=== PATIENT | female | born 1995 | race Caucasian/White ===

== ENCOUNTER 2023-09-02 07:00 | Day surgery (SDC) | payer BC ==
--- NOTE | 2023-08-27 08:11 | HP ---
DATE OF SURGERY: 09/02/2023 HISTORY OF PRESENT ILLNESS: The patient is a 28-year-old female presents with some more pain on the right side here lately. She has constant pain that comes in waves. There is a lot of heartburn at night. She is on some Pepto but it is not helping. Last April she was found to have a mucous filled appendix on CT scan. It appears that she was scheduled for colonoscopic examination but had to reschedule. She had been seen by Dr. Kike Fajardo initially and I believe that we do plan to do a laparoscopic appendectomy on her at some point. PAST MEDICAL HISTORY: Depression. Insomnia. Heartburn. PAST SURGICAL HISTORY: Tonsillectomy. Foot surgery. ALLERGIES: TRIPLE ANTIBIOTIC BACITRACIN, NEOMYCIN, POLYMYXIN (RASH). MEDICATIONS: Fluticasone, gabapentin, Apri, meloxicam, Mounjaro, amitriptyline, naltrexone, FAMILY HISTORY: Diabetes, atrial fibrillation. SOCIAL HISTORY: Negative. REVIEW OF SYSTEMS: CONSTITUTIONAL: Denies fever or chills. CHEST: Denies shortness of breath. CVS: Denies chest pain. ABDOMEN: Reports epigastric pain and right-sided abdominal pain. PHYSICAL EXAMINATION: GENERAL: No acute distress. CHEST: Nonlabored. No shortness of breath. CVS: Regular rate and rhythm. ABDOMEN: Soft. IMPRESSION: Epigastric pain, heartburn, mucocele of the appendix. PLAN: EGD and colonoscopy with Dr. Kike Fajardo. As dictated by Radha Foley NP.
[2023-09-02] MEDS ORDERED: Lactated Ringers 1,000 ML IV ONE (07:08)
[2023-09-02 07:22] LABS: HCG URINE TEST NEGATIVE (NEGATIVE)
[2023-09-02 07:40] VITALS: RESP 16
[2023-09-02] MEDS: Lactated Ringers 1,000 ML IV SCH (07:45)
[2023-09-02] MEDS ORDERED: DIPRIVAN 200 MG/20 ML IV ONE ×3 (09:14→09:45)
[2023-09-02] MEDS ORDERED: Versed 2 MG/2 ML Injection ONE (09:15)
[2023-09-02] MEDS ORDERED: Xylocaine-Mpf 2% 5 Ml Vial ONE (09:20)
[2023-09-02 10:15] VITALS: TEMP 98.5
[2023-09-02 10:22] VITALS: BP 123/88; PULSE 86; O2SAT 100
--- NOTE | 2023-09-02 10:22 | OP ---
SURGERY DATE/TIME: 09/02/2023 0939 PREOPERATIVE DIAGNOSIS: The patient had previous admissions for abdominal pain. POSTOPERATIVE DIAGNOSIS: The patient had previous admissions for abdominal pain. PROCEDURES: 1) EGD. 2) Colonoscopy. SURGEON: Kike Fajadro M.D. ANESTHESIA: MAC. INDICATION: She has had right-sided abdominal pain. She had epigastric pain. She had a CT scan showing a mucocele of the appendix. She presents for colonoscopic examination to look at the base for appendix and EGD to evaluate for upper symptoms. DESCRIPTION OF PROCEDURE: She is taken to endoscopy. Left lateral decubitus position. MAC sedation provided. Scope introduced. Pharyngoesophageal junction normal. Esophagus normal down to gastroesophageal junction. Gastroesophageal junction satisfactory. No hiatal hernia. Fundus, body normal. There were four superficial ulcerations in the prepyloric area. Resizer Operator cold biopsy for JAMAL-test. Pylorus normal. Duodenal bulb normal. Second portion normal. Scope withdrawn and looped upon itself. No additional lesions. Scope withdrawn. Anal digital examination satisfactory. Scope advanced. Slightly redundant. Slightly spastic. Scope advanced to the cecum. The appendiceal orifice was totally open and no suggestion of issue. Base of the cecum satisfactory. Ascending, hepatic, transverse, splenic, descending, sigmoid, rectum, anus normal. Normal colonoscopy. I think we can proceed with a laparoscopic appendectomy for chronic mucocele. I do not think it is from tumorous origin.
== END 2023-09-02 10:30 | disposition home or self-care (01) ==
LOC: SDC 07:00
PROVIDERS: ATTEND Surgery
DX: R10.31 Right lower quadrant pain (principal); Z83.3 Family history of diabetes mellitus
CPT/HCPCS: 81025; 82947; J2250; J2704

== ENCOUNTER 2023-10-21 06:56 | Day surgery (SDC) | payer BC ==
--- NOTE | 2023-10-19 14:37 | HP ---
DATE OF SURGERY: 10/21/2023 HISTORY OF PRESENT ILLNESS: The patient is a 28-year-old female who had presented with a chronic mucocele of the appendix. We recently did an EGD and colonoscopy on this patient. She had some superficial ulceration. Her colonoscopy was fine. She presents for laparoscopic appendectomy at this time. She had also been subsequently started on Carafate and proton pump inhibitor for ulcers. PAST MEDICAL HISTORY: Diabetes. Anxiety. Depression. Gastroesophageal reflux disease. Thyroid. Fibromyalgia. PAST SURGICAL HISTORY: Tonsillectomy. Foot surgery. ALLERGIES: TRIPLE ANTIBIOTIC. MEDICATIONS: Fluoxetine, gabapentin, Apri, meloxicam, Mounjaro, amitriptyline. Naltrexone. FAMILY HISTORY: Diabetes, atrial fibrillation. SOCIAL HISTORY: Negative. REVIEW OF SYSTEMS: CONSTITUTIONAL: Denies fever or chills. CHEST: Denies shortness of breath. CVS: Denies chest pain. ABDOMEN: Denies abdominal pain. PHYSICAL EXAMINATION: GENERAL: No acute distress. CHEST: Nonlabored. No shortness of breath. CVS: Regular rate and rhythm. ABDOMEN: Soft. IMPRESSION: Chronic mucocele of the appendix. PLAN: Laparoscopic appendectomy with Dr. Kike Fajardo. As dictated by Radha Foley NP.
[2023-10-21] MEDS ORDERED: Versed 2 MG/2 ML Injection IV PRN (07:19)
[2023-10-21] MEDS ORDERED: Lactated Ringers 1,000 ML IV ONE ×2 (07:20→08:22)
[2023-10-21] MEDS ORDERED: NEURONTIN ONE (07:25)
[2023-10-21] MEDS ORDERED: Transderm Scop 1.5MG Patch ONE (07:25)
[2023-10-21] MEDS ORDERED: Decadron 4 MG ONE (07:25)
[2023-10-21] MEDS ORDERED: TYLENOL EXTRA STRENGTH 500 MG ONE (07:25)
[2023-10-21] MEDS ORDERED: celeBREX 100 MG ONE (07:25)
[2023-10-21 07:31] LABS: HCG URINE TEST NEGATIVE (NEGATIVE)
[2023-10-21 07:51] VITALS: O2SAT 95
[2023-10-21] MEDS: NEURONTIN PO ONE (07:57)
[2023-10-21] MEDS: Decadron 4 MG PO ONE (07:57)
[2023-10-21] MEDS: TYLENOL EXTRA STRENGTH 500 MG PO ONE (07:57)
[2023-10-21] MEDS: Lactated Ringers 1,000 ML IV SCH (07:58)
[2023-10-21] MEDS: celeBREX 100 MG PO ONE (07:58)
[2023-10-21] MEDS: Transderm Scop 1.5MG Patch TOP ONE (07:58)
[2023-10-21 08:07] LABS: Calcium 9.2 mg/dL (8.4-10.2); Creatinine 1 0.7 mg/dL (0.52-1.04); Potassium 3.9 mmol/L (3.5-5.1)
[2023-10-21] MEDS ORDERED: Sensorcaine 0.25% 10 ML ONE (08:22)
[2023-10-21] MEDS: MEFOXIN 2 GM PREMIX** 2 GM/50 ML ML IV SCH (08:38)
[2023-10-21] MEDS ORDERED: Versed 2 MG/2 ML Injection ONE (09:15)
[2023-10-21] MEDS ORDERED: SUBLIMAZE 100 MCG/2 ML ONE ×2 (09:15→11:11)
[2023-10-21] MEDS ORDERED: DIPRIVAN 200 MG/20 ML IV ONE ×5 (09:16→09:50)
[2023-10-21] MEDS ORDERED: ROCURONIUM BROMIDE IV ONE (09:17)
[2023-10-21] MEDS ORDERED: Xylocaine-Mpf 2% 5 Ml Vial ONE (09:17)
[2023-10-21] MEDS ORDERED: Zofran 4 MG/2 ML VIAL ONE (09:18)
[2023-10-21] MEDS ORDERED: DEXMEDETOMIDINE 80 MCG/20ML-NS IV ONE (09:19)
[2023-10-21] MEDS ORDERED: Pre-Attached Lta Kit TP ONE (09:26)
[2023-10-21] MEDS ORDERED: ALBUTEROL/Proair Hfa MDI IH ONE (09:51)
[2023-10-21] MEDS ORDERED: BRIDION 200MG/2ML IV ONE (10:07)
--- NOTE | 2023-10-21 10:47 | OP ---
SURGERY DATE/TIME: 10/21/2023 0922 PREOPERATIVE DIAGNOSIS: A 28-year-old with chronic appendicitis. POSTOPERATIVE DIAGNOSIS: A 28-year-old with chronic appendicitis. PROCEDURE: Laparoscopic appendectomy. SURGEON: Kike Fajardo M.D. ANESTHESIA: General. COMPLICATIONS: None. CONDITION: Stable. DESCRIPTION OF PROCEDURE: Taken to surgery. General anesthetic. Routine prep and drape. Veress needle inserted. Opening pressure of 1 and insufflating pressure 14. Two - 5's laterally and a 12 at the umbilicus. Good visualization. Gynecological structures were down deep in the pelvis. The only thing seen was the right ovary which dropped down normally and the pelvis was normal size and normal shape and normal character. The appendix appeared to be chronically inflamed. It was thickened and was fairly long. The base was mobilized. The mesentery was entered. At this time a staple cartridge placed abutting right up to the cecum and fired and the mesoappendix was then taken with separate staple cartridge. Appendix placed in a condom bag and removed. The field was inspected and it was dry. The 12 trocar had been tunneled and there was no palpable defect. The port could not be reintroduced. A finger could not be reintroduced. CO2 was exsufflated. Skin closed with 4-0 Vicryl and Steri-Strips. The patient tolerated the procedure satisfactorily.
--- NOTE | 2023-10-21 11:27 | XRAY ---
Indication: Chest pressure following surgery. Comparison: None Portable chest slightly underinflated with minimal right apical and bilateral infrahilar subsegmental atelectasis/scarring. Remaining heart, lungs, and bony thorax unremarkable.
[2023-10-21 11:54] VITALS: RESP 18
[2023-10-21 12:21] VITALS: BP 124/84; PULSE 86; TEMP 97.2
== END 2023-10-21 12:30 | disposition home or self-care (01) ==
LOC: SDC 06:56
PROVIDERS: ATTEND Surgery
DX: K36 Other appendicitis (principal); E11.9 Type 2 diabetes mellitus without complications; Z79.899 Other long term (current) drug therapy
CPT/HCPCS: 36415; 71045; 80048; 81025; 83036; 93005; J0694; J2250; J2405; J2704; J3010; A9270-GY